=== PATIENT | female | born 1990 | race African-American/Black ===

== ENCOUNTER 2021-07-13 01:20 | Emergency (ER) | payer MEDICAID ==
[~2021-07-13] VITALS: Ht 167.6 cm; Wt 60.0 kg
[2021-07-13] MEDS ORDERED: SODIUM CHLORIDE 0.9% 1,000 ML IV ONE (02:15)
[2021-07-13 02:56] LABS: BASOPHILS % 0.4 % (0.0-2.0); EOSINOPHILS % 0.9 % (0.0-5.0); HEMOGLOBIN. 11.1 g/dL (12.0-16.0); LYMPHOCYTES % 29.3 % (20.0-50.0); MEAN CORPUSCULAR HEMOGLOBIN 23.7 pg (28.0-32.0); MEAN CORPUSCULAR VOLUME 74.5 fL (81.0-99.0); MEAN PLATELET VOLUME 7.7 fl (7.4-10.4); MONOCYTES % 5.8 % (2.0-8.0); NEUTROPHILS % 63.6 % (40.0-76.0); PLATELET 263 x1000/uL (130-400); RED CELL DISTRIBUTION WIDTH 20.1 % (11.6-14.6)
[2021-07-13 03:00] LABS: CHLORIDE 109 mEq/L (98-107)
[2021-07-13 03:04] LABS: ETHANOL BLOOD < 10 mg/dL
[2021-07-13 04:00] LABS: HCG SCREEN NEGATIVE
[2021-07-13 04:20] LABS: CLARITY URINE CLOUDY (CLEAR); COLOR URINE YELLOW (YELLOW); KETONES URINE NEGATIVE (NEGATIVE); LEUKOCYTE ESTERASE URINE 1+ (NEGATIVE); NITRITE URINE NEGATIVE (NEGATIVE); OCCULT BLOOD URINE NEGATIVE (NEGATIVE); PROTEIN URINE 1+ (NEGATIVE); SPECIFIC GRAVITY URINE 1.019 (1.005-1.030)
[2021-07-13 04:33] LABS: *BARBITURATES SCREEN URINE NEGATIVE (NEGATIVE); *BENZODIAZEPINES SCREEN URINE NEGATIVE (NEGATIVE)
[2021-07-13 04:34] LABS: *AMPHETAMINES SCREEN URINE PRESUMTIVE POSITIVE (NEGATIVE); CANNABINOID URINE SCREEN NEGATIVE (NEGATIVE); METHADONE URINE SCREEN NEGATIVE (NEGATIVE); OPIATES URINE SCREEN NEGATIVE (NEGATIVE); PHENCYCLIDINE URINE SCREEN NEGATIVE (NEGATIVE)
[2021-07-13 04:35] LABS: *COCAINE SCREEN URINE PRESUMTIVE POSITIVE (NEGATIVE)
[2021-07-13] MEDS ORDERED: FLUCONAZOLE 100MG TABLET PO ONE (05:45)
[2021-07-13] MEDS ORDERED: FLUCONAZOLE 150MG TABLET PO SCH (05:45)
[2021-07-13] MEDS ORDERED: CEPH500T MT (07:31)
[2021-07-13 08:36] VITALS: BP 121/78
== END 2021-07-13 08:30 | disposition home or self-care (01) ==
LOC: ER 01:20 → EDBD 01:20 → ER 08:30
DX: R41.82 Altered mental status, unspecified (principal); T40.5X1A Poisoning by cocaine, accidental (unintentional), initial encounter; Y92.9 Unspecified place or not applicable; Z59.0 Homelessness
CPT/HCPCS: 36415; 70450; 71045; 80053; 80305; 80307; 80320; 80329; 81003; 81025; 82140; 82962; 84703; 85025; 96360; 99285; J7030; Z7610; G0480

== ENCOUNTER 2022-05-12 19:29 | Emergency (ER) | payer MEDICAID ==
[~2022-05-12 19:29] MED LIST: CEPH500T MT
== END 2022-05-12 20:27 | disposition left against medical advice (07) ==
LOC: ER 19:29
DX: Z53.21 Procedure and treatment not carried out due to patient leaving prior to being seen by health care provider (principal)

== ENCOUNTER 2025-01-29 18:23 | Emergency (ER) | payer MEDICAID, OTHER ==
[~2025-01-29] VITALS: Ht 172.7 cm; Wt 58.9 kg
[2025-01-29 18:29] VITALS: O2SAT 99
[2025-01-29 18:58] VITALS: BP 12/61; PULSE 87; RESP 12; TEMP 36.7; O2SAT 99
[2025-01-29 18:58] LABS: BASOPHILS % 0.7 % (0.0-2.0); EOSINOPHILS % 5.8 % (0.0-5.0); HEMOGLOBIN. 11.6 g/dL (12.0-16.0); LYMPHOCYTES % 30.4 % (20.0-50.0); MEAN CORPUSCULAR HEMOGLOBIN 26.6 pg (28.0-32.0); MEAN CORPUSCULAR HGB CONC 31.5 g/dL (31.0-37.0); MEAN CORPUSCULAR VOLUME 84.5 fL (81.0-99.0); MEAN PLATELET VOLUME 7.5 fl (7.4-10.4); MONOCYTES % 8.7 % (2.0-8.0); NEUTROPHILS % 54.4 % (40.0-76.0); PLATELET 338 x1000/uL (130-400); RED BLOOD CELL COUNT 4.37 mill/uL (4.2-5.4); RED CELL DISTRIBUTION WIDTH 17.1 % (11.6-14.6); WHITE BLOOD COUNT 4.6 x1000/uL (4.5-11.0)
[2025-01-29 19:00] LABS: CLARITY URINE CLEAR (CLEAR); COLOR URINE YELLOW (YELLOW); GLUCOSE URINE NEGATIVE (NEGATIVE); KETONES URINE NEGATIVE (NEGATIVE); LEUKOCYTE ESTERASE URINE NEGATIVE (NEGATIVE); NITRITE URINE NEGATIVE (NEGATIVE); OCCULT BLOOD URINE NEGATIVE (NEGATIVE); PROTEIN URINE NEGATIVE (NEGATIVE); SPECIFIC GRAVITY URINE 1.026 (1.005-1.030)
[2025-01-29 19:04] LABS: CHLORIDE 106 mEq/L (98-107); POTASSIUM 3.8 mEq/L (3.5-5.1); SODIUM 139 mEq/L (136-145)
[2025-01-29 19:05] LABS: CALCIUM 9.6 mg/dL (8.7-10.4); CARBON DIOXIDE 27 mEq/L (21-32)
[2025-01-29] MEDS: ACETAMINOPHEN 325MG TABLET PO PRN (19:08)
[2025-01-29] MEDS: SODIUM CHLORIDE 0.9% 1,000 ML IV ONE (19:09)
[2025-01-29 19:10] LABS: CREATININE 0.6 mg/dL (0.6-1.0); GLUCOSE 110 mg/dL (70-105); UREA NITROGEN BLOOD 16 mg/dL (9-23)
[2025-01-29 19:12] LABS: ALANINE AMINOTRANSFERASE 39 IU/L (10-49); ASPARTATE AMINOTRANSFERASE 27 IU/L (<34); BILIRUBIN TOTAL 0.3 mg/dL (0.1-1.0); HCG SCREEN NEGATIVE; PROTEIN TOTAL 7.6 g/dL (6.0-8.3)
[2025-01-29 19:19] LABS: BACTERIA URINE 2+; RBC URINE 0-2 /hpf (0-2); WBC URINE 0-2 /hpf (0-2)
[2025-01-29 19:20] LABS: SQUAMOUS EPITHELIAL CELL URINE 1+ /lpf (RARE/1+)
== END 2025-01-29 21:37 | disposition home or self-care (01) ==
LOC: ER 18:23
DX: O9A.212 Injury, poisoning and certain other consequences of external causes complicating pregnancy, second trimester (principal); O20.0 Threatened abortion; S39.91XA Unspecified injury of abdomen, initial encounter; F14.90 Cocaine use, unspecified, uncomplicated; Z79.899 Other long term (current) drug therapy; Z3A.23 23 weeks gestation of pregnancy; W22.09XA Striking against other stationary object, initial encounter; Y93.89 Activity, other specified; Y92.89 Other specified places as the place of occurrence of the external cause; Y99.8 Other external cause status
CPT/HCPCS: 99284; 96360; 76856; 80053; 81003; 84703; 84702; 85025; 86850; 86900; 86901; 36415; J7030

== ENCOUNTER 2025-02-19 20:34 | Emergency (ER) | payer OTHER ==
[~2025-02-19] VITALS: Ht 175.3 cm; Wt 71.6 kg
[2025-02-19 20:43] VITALS: PULSE 107; O2SAT 99
[2025-02-19 20:49] VITALS: BP 111/65; RESP 16; TEMP 36.8; O2SAT 98
== END 2025-02-20 02:59 | disposition left against medical advice (07) ==
LOC: ER 20:34
DX: Z00.8 Encounter for other general examination (principal); Z53.21 Procedure and treatment not carried out due to patient leaving prior to being seen by health care provider